=== PATIENT | female | born 1990 | race Hispanic/Latino ===

== ENCOUNTER 2018-12-25 11:15 | Emergency (ER) | payer OTHER, SELFPAY ==
--- OUTSIDE RECORDS SUMMARY | 2018-12-25 11:16 | XMS REPORT ---
:1990 [facility] Address [address] [place] [address] [address] [place] [address] Care Team Providers Name Role Phone Unavailable Unavailable Unavailable Problems This patient has no known problems. Allergies, Adverse Reactions, Alerts This patient has no known allergies or adverse reactions. Medications This patient has no known medications.
--- NOTE | 2018-12-25 12:41 | EDPHYS ---
Physician Documentation [facility] Name: Paola Tee Age: 28 yrs Sex: Female : 1990 Arrival Date: 12/25/2018 Time: 11:17 Bed 23 Private MD: NELIDA Physician Kenney Haney HPI: 12/25 12:47 This 28 yrs old Female presents to ER via Ambulatory with complaints of Rash. snw 12:47 The patient's rash thought to be caused by Dermatitis. The rash is located on the left snw gluteal fold. The rash can be described as crusted, erythematous, patchy, raised, in annular configuration. Onset: The symptoms/episode began/occurred gradually, and became worse 2 week(s) ago, and became persistent. Associated signs and symptoms: Pertinent positives: burning sensation, itching. Treatment given at home: eczema cream. The patient has experienced similar episodes in the past. The patient has not recently seen a physician. Dermatology appt in a few weeks. 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 - Social history:: Smoking status: Patient uses tobacco products, 1/4 pack about 4 days. - Ebola Screening: : Patient denies exposure to infectious person. ROS: 12:47 Constitutional: Negative for fever, chills, and weight loss, Eyes: Negative for injury, snw pain, redness, and discharge, ENT: Negative for injury, pain, and discharge, Neck: Negative for injury, pain, and swelling, Cardiovascular: Negative for chest pain, palpitations, and edema, Respiratory: Negative for shortness of breath, cough, wheezing, and pleuritic chest pain, Abdomen/GI: Negative for abdominal pain, nausea, vomiting, diarrhea, and constipation, Back: Negative for injury and pain, : Negative for injury, bleeding, discharge, and swelling, MS/Extremity: Negative for injury and deformity, Neuro: Negative for headache, weakness, numbness, tingling, and seizure, Psych: Negative for depression, anxiety, suicide ideation, homicidal ideation, and hallucinations. 12:47 Skin: Positive for rash. Exam: 12:45 Constitutional: This is a well developed, well nourished patient who is awake, alert, snw and in no acute distress. Head/Face: Normocephalic, atraumatic. Eyes: Pupils equal round and reactive to light, extra-ocular motions intact. Lids and lashes normal. Conjunctiva and sclera are non-icteric and not injected. Cornea within normal limits. Periorbital areas with no swelling, redness, or edema. ENT: Nares patent. No nasal discharge, no septal abnormalities noted. Tympanic membranes are normal and external auditory canals are clear. Oropharynx with no redness, swelling, or masses, exudates, or evidence of obstruction, uvula midline. Mucous membranes moist. Neck: Trachea midline, no thyromegaly or masses palpated, and no cervical lymphadenopathy. Supple, full range of motion without nuchal rigidity, or vertebral point tenderness. No Meningismus. Chest/axilla: Normal chest wall appearance and motion. Nontender with no deformity. No lesions are appreciated. Cardiovascular: Regular rate and rhythm with a normal S1 and S2. No gallops, murmurs, or rubs. Normal PMI, no JVD. No pulse deficits. Respiratory: Lungs have equal breath sounds bilaterally, clear to auscultation and percussion. No rales, rhonchi or wheezes noted. No increased work of breathing, no retractions or nasal flaring. Abdomen/GI: Soft, non-tender, with normal bowel sounds. No distension or tympany. No guarding or rebound. No evidence of tenderness throughout. Back: No spinal tenderness. No costovertebral tenderness. Full range of motion. MS/ Extremity: Pulses equal, no cyanosis. Neurovascular intact. Full, normal range of motion. Neuro: Awake and alert, GCS 15, oriented to person, place, time, and situation. Cranial nerves II-XII grossly intact. Motor strength 5/5 in all extremities. Sensory grossly intact. Cerebellar exam normal. Normal gait. Psych: Awake, alert, with orientation to person, place and time. Behavior, mood, and affect are within normal limits. 12:45 Skin: Appearance: normal except for affected area, rash a severe rash is noted, rash can be described as erythematous, nonspecific, raised, ring like, borders with increased redness. Vital Signs: 11:32 BP 128 / 67; Pulse 77; Resp 18; Temp 98.3(TE); Pulse Ox 99% on R/A; Weight 63.05 kg tw2 (R); Height 5 ft. 2 in. (157.48 cm); Pain 10/10; 11:32 Body Mass Index 25.42 (63.05 kg, 157.48 cm) tw2 MDM: 12:19 Patient medically screened. [facility] 12:46 Data reviewed: vital signs, nurses notes. Data interpreted: Pulse oximetry: on room air snw is 99 %. Interpretation: normal. Counseling: I had a detailed discussion with the patient and/or guardian regarding: the historical points, exam findings, and any diagnostic results supporting the discharge/admit diagnosis, the need for outpatient follow up, to return to the emergency department if symptoms worsen or persist or if there are any questions or concerns that arise at home. Special discussion: Based on the history and exam findings, there is no indication for further emergent testing or inpatient evaluation. I discussed with the patient/guardian the need to see the credit and collection manager for further evaluation of the symptoms. Administered Medications: No medications were administered Disposition: 13:28 Co-signature as Attending Physician, Kenney Haney MD I agree with the assessment and [facility] plan of care. Disposition: 12/25/18 12:40 Discharged to Home. Impression: Dermatitis, unspecified. - Condition is Stable. - Discharge Instructions: Rash, [id number]. - Prescriptions for Lotrisone 1- 0.05 % Topical cream - apply 1 application by TOPICAL route 2 times per day; 45 gram. - Medication Reconciliation Form, Thank You Letter, Antibiotic Education, Prescription Opioid Use form. - Follow up: Private Physician; When: 1 week; Reason: Recheck today's complaints, Continuance of care, Re-evaluation by your physician. Follow up: Emergency Department; When: As needed; Reason: Worsening of condition. Signatures: Kenney Haney MD MD cha Therrien, Shelly, SAFETY BELT INSTALLER-C SAFETY BELT INSTALLER-Csnw Joi Ervin RN RN iw Zo Trujillo RN RN tw2 Corrections: (The following items were deleted from the chart) 12:53 12:40 12/25/2018 12:40 Discharged to Home. Impression: Dermatitis, unspecified. iw Condition is Stable. Forms are Medication Reconciliation Form, Thank You Letter, Antibiotic Education, Prescription Opioid Use. Follow up: Private Physician; When: 1 week; Reason: Recheck today's complaints, Continuance of care, Re-evaluation by your physician. Follow up: Emergency Department; When: As needed; Reason: Worsening of condition. snw
--- NOTE | 2018-12-25 12:41 | ER ---
Nurse's Notes [facility] Name: Paola Tee Age: 28 yrs Sex: Female : 1990 Arrival Date: 12/25/2018 Time: 11:17 Bed 23 Private MD: Diagnosis: Dermatitis, unspecified Presentation: 12/25 11:31 Presenting complaint: Patient states: i have a rash that is on the back of my left leg tw2 and goes up to my butt, it started Monday last week, i made an appt with the buggyman but they cant get me in for a couple of weeks. it has always been there but last week it got really bad. Transition of care: patient was not received from another setting of care. Onset of symptoms was December 25, 2018. Risk Assessment: Do you want to hurt yourself or someone else? Patient reports no desire to harm self or others. Initial Sepsis Screen: Does the patient meet any 2 criteria? No. Patient's initial sepsis screen is negative. Does the patient have a suspected source of infection? No. Patient's initial sepsis screen is negative. Care prior to arrival: None. 11:31 Method Of Arrival: Ambulatory tw2 11:31 Acuity: TOÑITO 4 tw2 Triage Assessment: 11:34 General: Appears in no apparent distress. well groomed, Behavior is calm, cooperative, tw2 appropriate for age. Pain: Complains of pain in left hip, lateral aspect of left thigh, left gluteal fold and left hamstring. 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 - Social history:: Smoking status: Patient uses tobacco products, 1/4 pack about 4 days. - Ebola Screening: : Patient denies exposure to infectious person. Screenin:52 Abuse screen: Denies threats or abuse. Denies injuries from another. Nutritional iw screening: No deficits noted. Tuberculosis screening: No symptoms or risk factors identified. Fall Risk None identified. Assessment: 12:10 General: Appears in no apparent distress. Behavior is calm, cooperative. Neuro: Level iw of Consciousness is awake, alert, obeys commands. Cardiovascular: Patient's skin is warm and dry. Respiratory: Respiratory effort is even, unlabored, Respiratory pattern is regular, symmetrical. Derm: Rash noted that is papular, red, on left hamstring and left gluteal fold and lateral aspect of left thigh. Musculoskeletal: Range of motion: intact in all extremities. Vital Signs: 11:32 BP 128 / 67; Pulse 77; Resp 18; Temp 98.3(TE); Pulse Ox 99% on R/A; Weight 63.05 kg tw2 (R); Height 5 ft. 2 in. (157.48 cm); Pain 10/; 11:32 Body Mass Index 25.42 (63.05 kg, 157.48 cm) tw2 ED Course: 11:17 Patient arrived in ED. mr 11:21 [facility]C [facility] snw 11:21 Kenney Haney MD is Attending Physician. snw 11:32 Triage completed. tw2 11:32 Arm band placed on. tw2 12:10 Patient has correct armband on for positive identification. iw 12:52 No provider procedures requiring assistance completed. Patient did not have IV access iw during this emergency room visit. 12:53 Joi Ervin, RN is Primary Nurse. iw Administered Medications: No medications were administered Outcome: 12:40 Discharge ordered by . snw 12:52 Discharged to home ambulatory. iw 12:52 Condition: good 12:52 Discharge instructions given to patient, Instructed on discharge instructions, follow up and referral plans. medication usage, Demonstrated understanding of instructions, follow-up care, medications, Prescriptions given X 1. 12:53 Patient left the ED. iw Signatures: Odessa Danielson FNP-C FNP-Dinora Saina Woodall mr Joi Ervin, RN RN iw Zo Trujillo RN RN tw2
[2018-12-25 13:15] VITALS: BP 128/67; TEMP 98.3; O2SAT 99
== END 2018-12-25 12:53 | disposition home or self-care (01) ==
LOC: ER 11:15
DX: L30.9 Dermatitis, unspecified (principal); Z72.0 Tobacco use
CPT/HCPCS: 99282